=== PATIENT | female | born 2005 | race Caucasian/White ===

== ENCOUNTER 2024-01-31 00:17 | Emergency (ER) | payer MEDICAID ==
[~2024-01-31] VITALS: Ht 160 cm; Wt 72.6 kg
[2024-01-31 00:23] VITALS: BP_SYST 128; PULSE 102; RESP 18; TEMP 97; O2SAT 99
[2024-01-31] MEDS: ONDANSETRON HCL 4 MG/2 ML VIAL IVP ONE (01:37)
[2024-01-31] MEDS: NACL 0.9% 1,000 ML IV ONE (01:37)
[2024-01-31 01:39] LABS: BASOPHILS % (AUTO) 0.2 % (0.0-2.0); EOSINOPHILS # (AUTO) 0.1 K/uL (0.0-0.4); EOSINOPHILS % (AUTO) 0.5 % (0.0-4.0); HEMATOCRIT 37.2 % (36-48); HEMOGLOBIN 12.6 g/dL (12.0-16.0); LYMPHOCYTES # (AUTO) 1.8 K/uL (1.0-5.5); LYMPHOCYTES % (AUTO) 14.9 % (20.5-51.5); MEAN CORPUSCULAR HEMOGLOBIN 29 pg (27-31); MEAN CORPUSCULAR HGB CONC 34 % (32-36); MEAN CORPUSCULAR VOLUME 85 fL (79.0-98.0); MONOCYTES # (AUTO) 0.5 K/uL (0.0-1.0); MONOCYTES % (AUTO) 3.8 % (1.7-9.3); NEUTROPHILS # (AUTO) 9.6 K/uL (1.8-7.7); NEUTROPHILS % (AUTO) 80.6 % (40.0-70.0); PLATELET COUNT (AUTO) 262 K/uL (130-430); RED BLOOD CELL COUNT(AUTO) 4.37 MIL/uL (4.2-6.2); RED CELL DISTRIBUTION WIDTH 13.2 % (9.0-15.0)
[2024-01-31 01:47] LABS: CALCIUM 8.5 mg/dL (8.4-11.0); CREATININE 0.79 mg/dL (0.55-1.30); POTASSIUM 3.4 mmol/L (3.5-5.1)
[2024-01-31 02:10] LABS: SERUM HCG (QUALITATIVE) NEGATIVE (NEGATIVE)
[2024-01-31 02:47] LABS: PROTHROMBIN TIME 10.5 SECS (9.5-12.5)
[2024-01-31 04:45] VITALS: BP_SYST 120; PULSE 101; RESP 18; TEMP 97; O2SAT 99
== END 2024-01-31 04:45 | disposition home or self-care (01) ==
LOC: SED 00:17 → EDBD 00:17 → SED 04:45
DX: F10.129 Alcohol abuse with intoxication, unspecified (principal); R11.2 Nausea with vomiting, unspecified; Y90.9 Presence of alcohol in blood, level not specified
CPT/HCPCS: 99283; 96374; 96361; 80048; 84703; 83690; 85025; 85610; 85730; 36415; G0482; J2405; J7030